=== PATIENT | male | born 1935 | race Caucasian/White ===

== ENCOUNTER 2018-10-09 09:50 | Inpatient (IN) | payer OTHER ==
[~2018-10-09] VITALS: Ht 185.4 cm; Wt 92.0 kg
[2018-10-09] MEDS ORDERED: ondansetron/PF 4mg/2ml inj IV ONE (10:25)
[2018-10-09 10:27] LABS: BASOPHILS % (AUTO) 0.1 % (0-1); EOSINOPHILS % (AUTO) 0 % (0-6); HEMATOCRIT 43.9 % (42.0-52.0); HEMOGLOBIN 15.4 g/dl (14.0-17.9); LYMPHOCYTES # (AUTO) 0.5 X10'3 (1.1-4.8); LYMPHOCYTES % (AUTO) 4.3 % (21-51); MEAN CORPUSCULAR HEMOGLOBIN 32.8 PG (27.0-31.0); MEAN CORPUSCULAR HGB CONC 35.1 g/dL (33.0-36.5); MEAN CORPUSCULAR VOLUME 93.3 FL (78-98); MEAN PLATELET VOLUME 7.3 FL (7.4-10.4); MONOCYTES # (AUTO) 0.6 X10'3 (0-0.9); NEUTROPHILS % (AUTO) 90.6 % (42-75); PLATELET COUNT 214 X10'3 (140-440); RED BLOOD COUNT 4.71 X10'6 (4.70-6.10); WHITE BLOOD COUNT 12.2 X10'3 (4.5-11.0)
[2018-10-09 10:42] LABS: ALANINE AMINOTRANSFERASE 48 U/L (12-78); ALBUMIN 3.8 G/DL (3.4-5.0); ALBUMIN/GLOBULIN RATIO 1.2 (1.1-1.5); ALKALINE PHOSPHATASE 57 IU/L (46-116); ANION GAP 7 (8-16); ASPARTATE AMINO TRANSFERASE 36 U/L (10-37); BILIRUBIN,TOTAL 1.3 MG/DL (0.1-1.0); BLOOD UREA NITROGEN 21 MG/DL (7-18); BUN/CREATININE RATIO 7.4 (5.4-32.0); CHLORIDE 91 MMOL/L (99-107); CREATININE 2.85 MG/DL (0.60-1.10); GLUCOSE 129 MG/DL (70-104); POTASSIUM 4.4 MMOL/L (3.5-5.1); SODIUM 125 MMOL/L (135-145); TOTAL CARBON DIOXIDE 27.2 MMOL/L (24-32); TOTAL PROTEIN 7.1 G/DL (6.4-8.2); eGFR 21 ML/MIN
[2018-10-09 10:46] LABS: PARTIAL THROMBOPLASTIN TIME 28 SECONDS (22-32)
[2018-10-09 10:58] LABS: LIPASE 64 U/L (73-393)
[2018-10-09] MEDS ORDERED: fentaNYL/PF 50MCG/1 ML 2ML syringe IV ONE (11:00)
[2018-10-09 11:05] LABS: CLARITY,URINE CLEAR (Clear); COLOR,URINE YELLOW (Yellow); GLUCOSE, URINE NEGATIVE (Neg); KETONES,URINE NEGATIVE (Neg); LEUKOCYTE ESTERASE ,URINE NEGATIVE (Neg); NITRITES, URINE NEGATIVE (Neg); OCCULT BLOOD,URINE LARGE (Neg); PH,URINE 5.5 (4.8-8.0); PROTEIN,URINE NEGATIVE (Neg); UROBILINOGEN,URINE 0.2 E.U/dL (0.2-1.0)
[2018-10-09 11:06] LABS: UA COLLECTION TYPE FOLEY CATH
[2018-10-09 11:13] LABS: MUCUS STRANDS FEW /LPF (Neg); RBC,URINE 50-100 /HPF (0-2); SQUAMOUS EPITHELIAL CELL,UR FEW /LPF (FEW); WBC,URINE 0-4 /HPF (0-4)
[2018-10-09 11:14] LABS: BACTERIA,URINE FEW /HPF (Neg)
[2018-10-09] MEDS ORDERED: normal saline 1000ML IV soln IVB ONE (11:45)
[2018-10-09] MEDS ORDERED: fentaNYL/PF 50MCG/1 ML 2ML syringe ONE (12:01)
[2018-10-09] MEDS ORDERED: magnesium Cl slow-release 64mg tablet PO PRN (12:25)
[2018-10-09] MEDS ORDERED: mag hydrox/Alum hydrox/simeth 30ml oral suspension PO PRN (12:25)
[2018-10-09] MEDS: K and/or MAG REPLACEMENT MC SCH (12:25)
[2018-10-09] MEDS ORDERED: potassium Cl 20 mEq SR tablet PO PRN (12:25)
[2018-10-09] MEDS ORDERED: HYDROcodone/acetaminophen 10/325mg tab PO PRN (12:25)
[2018-10-09] MEDS ORDERED: morphine 2 MG/ML inj. syringe IV PRN (12:25)
[2018-10-09] MEDS ORDERED: magnesium 2GM in 50ml NS 50 ML IV PRN (12:25)
[2018-10-09] MEDS ORDERED: magnesium 4gm in 100ml NS 100 ML IV PRN (12:25)
[2018-10-09] MEDS ORDERED: potassium CL 10mEq/100ml bag 100 ML IV PRN ×2 (12:25)
[2018-10-09] MEDS ORDERED: HYDROcodone/acetaminophen 5mg/325mg tablet PO PRN (12:25)
[2018-10-09] MEDS ORDERED: metoclopramide 5 mg/ml inj IV PRN (12:25)
[2018-10-09] MEDS ORDERED: diphenhydrAMINE 50 mg/ml inj IV PRN (12:25)
[2018-10-09] MEDS ORDERED: magnesium hydroxide 30ml (MOM) UD suspension PO PRN (12:25)
[2018-10-09] MEDS ORDERED: diphenhydrAMINE 25mg capsule PO PRN (12:25)
[2018-10-09] MEDS ORDERED: acetaminophen 650mg rectal suppository RC PRN (12:25)
[2018-10-09] MEDS ORDERED: acetaminophen 325mg tablet PO PRN ×2 (12:25)
[2018-10-09] MEDS ORDERED: ondansetron/PF 4mg/2ml inj IV PRN (12:25)
[2018-10-09] MEDS ORDERED: NO HOME MEDS (12:26)
--- NOTE | 2018-10-09 12:27 | NUR ---
relieving RN for break, pt is resting quietly on gurney, resp even and unlabored, NGTube connected to suction, 200ml of dark brown fluid initial output, friend at bedside
[2018-10-09] MEDS: dextrose 5%-normal saline 1,000 ML IV SCH ×3 (13:05→22:59)
[2018-10-09 13:30] VITALS: BP 134/73
--- NOTE | 2018-10-09 18:30 | NUR ---
Problems reprioritized. Patient report given, questions answered & plan of care reviewed with Chichi OSORIO.
--- NOTE | 2018-10-09 18:35 | NUR ---
Patient in room [facility]. I have received report from Omar OSORIO and had the opportunity to ask questions and assume patient care.
[2018-10-09] MEDS: heparin, porcine 5000 units/ml vial SQ SCH (19:23)
[2018-10-09] MEDS: morphine 2 MG/ML inj. syringe IV PRN (19:25)
[2018-10-09 20:19] VITALS: BP 137/77
[2018-10-09] MEDS ORDERED: temazepam 15mg capsule PO PRN (21:00)
[2018-10-09] MEDS: diatr meglu/diatrizoate 30ml oral sol.-(3 dose) bottle PO SCH (21:45)
[2018-10-09] MEDS ORDERED: proCHLORperazine 10 MG/2 ml inj IV ONE (22:05)
[2018-10-10] VITALS: BP 136/71
[2018-10-10] MEDS: dextrose 5%-normal saline 1,000 ML IV SCH ×2 (04:25→07:02)
[2018-10-10 05:35] LABS: BASOPHILS % (AUTO) 0.1 % (0-1); EOSINOPHILS % (AUTO) 0.2 % (0-6); HEMATOCRIT 39.5 % (42.0-52.0); HEMOGLOBIN 13.6 g/dl (14.0-17.9); LYMPHOCYTES # (AUTO) 0.6 X10'3 (1.1-4.8); LYMPHOCYTES % (AUTO) 6.4 % (21-51); MEAN CORPUSCULAR HEMOGLOBIN 32.9 PG (27.0-31.0); MEAN CORPUSCULAR HGB CONC 34.5 g/dL (33.0-36.5); MEAN CORPUSCULAR VOLUME 95.4 FL (78-98); MEAN PLATELET VOLUME 7.7 FL (7.4-10.4); MONOCYTES # (AUTO) 0.8 X10'3 (0-0.9); MONOCYTES % (AUTO) 7.9 % (2-12); NEUTROPHILS # (AUTO) 8.5 X10'3 (1.8-7.7); NEUTROPHILS % (AUTO) 85.4 % (42-75); PLATELET COUNT 184 X10'3 (140-440); RED BLOOD COUNT 4.14 X10'6 (4.70-6.10); RED CELL DISTRIBUTION WIDTH 13.1 % (11.5-14.5); WHITE BLOOD COUNT 9.9 X10'3 (4.5-11.0)
[2018-10-10 05:43] LABS: ALANINE AMINOTRANSFERASE 35 U/L (12-78); ALBUMIN 2.9 G/DL (3.4-5.0); ALKALINE PHOSPHATASE 46 IU/L (46-116); ANION GAP 3 (8-16); ASPARTATE AMINO TRANSFERASE 23 U/L (10-37); BILIRUBIN,TOTAL 0.7 MG/DL (0.1-1.0); BLOOD UREA NITROGEN 11 MG/DL (7-18); BUN/CREATININE RATIO 12.1 (5.4-32.0); CALCIUM 8.7 MG/DL (8.5-10.1); CHLORIDE 103 MMOL/L (99-107); CHOL/HDL RATIO 1.6 (0.00-4.99); CHOLESTEROL 124 MG/DL (0-200); CREATININE 0.91 MG/DL (0.60-1.10); GLUCOSE 115 MG/DL (70-104); HDL CHOLESTEROL 76 MG/DL (35-60); LDL CHOLESTEROL 39 MG/DL (50-100); MAGNESIUM 2.2 MG/DL (1.5-2.4); PHOSPHORUS 3.3 MG/DL (2.3-4.5); SODIUM 139 MMOL/L (135-145); TOTAL CARBON DIOXIDE 33.3 MMOL/L (24-32); TOTAL PROTEIN 5.7 G/DL (6.4-8.2); TRIGLYCERIDES 67 MG/DL (20-135); eGFR 80 ML/MIN
[2018-10-10 06:11] LABS: URINE AMPHETAMINE SCREEN NEGATIVE (Neg); URINE BARBITUATE SCREEN NEGATIVE (Neg); URINE BENZODIAZEPINES SCREEN NEGATIVE (Neg); URINE CANNABINOID SCREEN POSITIVE (Neg); URINE COCAINE SCREEN NEGATIVE (Neg); URINE METHADONE SCREEN NEGATIVE (Neg); URINE OPIATE SCREEN POSITIVE (Neg); URINE PHENCYCLIDINE SCREEN NEGATIVE (Neg)
--- NOTE | 2018-10-10 06:53 | NUR ---
Problems reprioritized. Patient report given, questions answered & plan of care reviewed with Omar RN.
[2018-10-10] MEDS: diatr meglu/diatrizoate 30ml oral sol.-(3 dose) bottle PO SCH ×2 (07:01→09:31)
[2018-10-10] MEDS: heparin, porcine 5000 units/ml vial SQ SCH ×2 (07:03→20:52)
[2018-10-10] MEDS: K and/or MAG REPLACEMENT MC SCH (07:04)
[2018-10-10 07:28] VITALS: BP 105/72
[2018-10-10] MEDS ORDERED: iohexol 300mg/ml 100ml inj. ONE (10:27)
[2018-10-10 11:00] VITALS: BP 145/75
[2018-10-10] MEDS: morphine 2 MG/ML inj. syringe IV PRN (11:12)
[2018-10-10] MEDS: levoFLOXACIN-Levaquin 750MG/D5 150 ML IV SCH (13:10)
[2018-10-10] MEDS: metroNIDAZOLE-Flagyl 500mg/NS 100 ML IV SCH (16:17)
--- NOTE | 2018-10-10 16:17 | NUR ---
NG CLAMPED OFF AT THIS TIME PER DR COOK.
[2018-10-10 16:37] LABS: H PYLORI ANTIBODY NEGATIVE (Neg)
[2018-10-10 17:33] LABS: GASTRIC OCCULT BLOOD POSITIVE (Neg)
--- NOTE | 2018-10-10 18:50 | NUR ---
Patient in room [facility]. I have received report from Omar OSORIO and had the opportunity to ask questions and assume patient care.
--- NOTE | 2018-10-10 18:54 | NUR ---
Problems reprioritized. Patient report given, questions answered & plan of care reviewed with Chichi OSORIO.
[2018-10-10 20:00] VITALS: BP 161/79
[2018-10-10] MEDS: tamsulosin 0.4mg capsule PO SCH (20:48)
[2018-10-10] MEDS: ESOMEPRAZOLE 40 MG VIAL IV SCH (20:49)
[2018-10-11] VITALS (9 sets, daily range): BP systolic 129–169; BP diastolic 72–90
[2018-10-11] MEDS: metroNIDAZOLE-Flagyl 500mg/NS 100 ML IV SCH ×3 (00:07→16:09)
[2018-10-11] MEDS: dextrose 5%-normal saline 1,000 ML IV SCH (03:31)
[2018-10-11 05:31] LABS: BASOPHILS % (AUTO) 0.2 % (0-1); EOSINOPHILS # (AUTO) 0.1 X10'3 (0-0.9); EOSINOPHILS % (AUTO) 1.9 % (0-6); HEMATOCRIT 37.5 % (42.0-52.0); HEMOGLOBIN 12.9 g/dl (14.0-17.9); LYMPHOCYTES # (AUTO) 0.8 X10'3 (1.1-4.8); LYMPHOCYTES % (AUTO) 14.7 % (21-51); MEAN CORPUSCULAR HEMOGLOBIN 32.9 PG (27.0-31.0); MEAN CORPUSCULAR HGB CONC 34.5 g/dL (33.0-36.5); MEAN CORPUSCULAR VOLUME 95.4 FL (78-98); MEAN PLATELET VOLUME 7.4 FL (7.4-10.4); MONOCYTES # (AUTO) 0.6 X10'3 (0-0.9); MONOCYTES % (AUTO) 10.5 % (2-12); NEUTROPHILS # (AUTO) 4.2 X10'3 (1.8-7.7); NEUTROPHILS % (AUTO) 72.7 % (42-75); PLATELET COUNT 165 X10'3 (140-440); RED BLOOD COUNT 3.93 X10'6 (4.70-6.10); RED CELL DISTRIBUTION WIDTH 13.2 % (11.5-14.5); WHITE BLOOD COUNT 5.7 X10'3 (4.5-11.0)
[2018-10-11 05:47] LABS: ALANINE AMINOTRANSFERASE 31 U/L (12-78); ALBUMIN 2.8 G/DL (3.4-5.0); ALKALINE PHOSPHATASE 42 IU/L (46-116); ANION GAP 4 (8-16); ASPARTATE AMINO TRANSFERASE 13 U/L (10-37); BILIRUBIN,TOTAL 0.7 MG/DL (0.1-1.0); BLOOD UREA NITROGEN 10 MG/DL (7-18); BUN/CREATININE RATIO 13.5 (5.4-32.0); CALCIUM 8.4 MG/DL (8.5-10.1); CHLORIDE 105 MMOL/L (99-107); CREATININE 0.74 MG/DL (0.60-1.10); GLUCOSE 94 MG/DL (70-104); PHOSPHORUS 2.6 MG/DL (2.3-4.5); POTASSIUM 3.6 MMOL/L (3.5-5.1); SODIUM 140 MMOL/L (135-145); TOTAL CARBON DIOXIDE 31.1 MMOL/L (24-32); TOTAL PROTEIN 5.6 G/DL (6.4-8.2); eGFR > 90 ML/MIN
--- NOTE | 2018-10-11 06:31 | NUR ---
Problems reprioritized. Patient report given, questions answered & plan of care reviewed with Kavita OSORIO.
[2018-10-11] MEDS: K and/or MAG REPLACEMENT MC SCH (08:00)
[2018-10-11] MEDS: heparin, porcine 5000 units/ml vial SQ SCH ×2 (08:00→08:23)
[2018-10-11] MEDS: ESOMEPRAZOLE 40 MG VIAL IV SCH (08:23)
[2018-10-11] MEDS: levoFLOXACIN-Levaquin 750MG/D5 150 ML IV SCH (10:19)
--- NOTE | 2018-10-11 11:52 | NUR ---
Pt stated he was refusing the EGD and wanted to leave AMA. I reviewed the test and procedure as well as conscious sedation. Pt agreed to the EGD if he would be "asleep" and not have a tube in his nose stating, "I'm not going through that again". I spoke w/ Bertha RN in GI lab to confirm EGD scheduling and she expressed concern SBO was resolving d/t gas and bowel sounds. Dr. Das, & JO Walls, were notified and clarified the EGD was indicated d/t pt's Gastroccult was positive. Bertha was notified of clarification and she stated she would come get the patient for the EGD.
--- NOTE | 2018-10-11 11:56 | NUR ---
Pt. refused EGD procedure this AM. aware. Risks of not having procedure explained. Pt. still wanted to leave. AMA papers signed, however charge nurse spoke to pt. and explained that pt. would be sedated during procedure. pt decided he would be ok with the procedure but then is hoping to leave afterwards. Explained to the pt. that discharge would depend on the results of the procedure. GI called, charge spoke to Bertha to reschedule EGD as pt. is allowing at this time. FC removed per verbal order from . Will cont. to monitor on my shift.
[2018-10-11] MEDS ORDERED: MIDAZolam 5mg/5ml vial ONE (12:17)
[2018-10-11] MEDS ORDERED: fentaNYL/PF 50MCG/1 ML 2ML syringe ONE (12:17)
[2018-10-11] MEDS ORDERED: LIDOcaine Viscous 15ml cup ONE (12:17)
[2018-10-11 13:12] LABS: % FREE PSA 19.4 % (.); PSA, FREE 0.31 ng/mL
--- NOTE | 2018-10-11 13:27 | NUR ---
PAGER ID: [phone] MESSAGE: [phone] Ruel Chirinos Return from EGD. Ride home is here. Eager to leave. Rochelle recommends Protonix 40mg BID for LA Grade C acute esophagitis and gastritis. Biopsied-pt. aware to call pathology. Diet? Kavita [phone]
--- NOTE | 2018-10-11 15:05 | NUR ---
Dr. Ely rounded, speaking to pt re: no surgery indicated. stated pt may be discharged when ready per hospitalist.
--- NOTE | 2018-10-11 15:41 | NUR ---
PAGER ID: [phone] MESSAGE: [phone] AMNA CUTLERRADHA ROUNDED ON PT. AND HAS APPROVED A DISCHARGE FOR HIM . LET ME KNOW WHAT YOU THINK. KATHY [phone]
[2018-10-11] MEDS ORDERED: METR500T PO (15:46)
[2018-10-11] MEDS ORDERED: LEVO500T89 PO (15:46)
[2018-10-11] MEDS ORDERED: PANT40TA4 PO (15:46)
[2018-10-11] MEDS ORDERED: tamsulosin capsule PO (15:46)
--- NOTE | 2018-10-11 15:46 | NUR ---
BLADDER SCANNED 275 ML IN BLADDER. PT. ENCOURAGED TO AMBULATE. WALKED 900FT. WILL CONT. TO MONITOR.
--- NOTE | 2018-10-11 15:54 | NUR ---
PAGER ID: [phone] MESSAGE: AMNA JORGENSEN 356A PT. STILL NO VOID SINCE FC REMOVED. 275 IN BLADDER. OK TO SEND HOME WITH FLOMAX OR WAIT UNTIL VOID? KATHY [phone]
--- NOTE | 2018-10-11 15:56 | NUR ---
CALLED BACK IMMEDIATELY. WANTS PT. TO VOID BEFORE HE GOES HOME. STRAIGHT CATH IF BLADDER HAS >600 IN BLADDER.
--- NOTE | 2018-10-11 16:46 | NUR ---
ACCOUNT DEVELOPMENT MANAGER bladder scanned pt. 431 in bladder. will cont. to monitor on my shift. encouraged pt to use restroom and ambulate.
--- NOTE | 2018-10-11 17:38 | NUR ---
DISCHARGE ON HOLD PER MD MEIER R/T [facility]G AMOUNT OF TARRY STOOL. PT. AWARE AND IN AGREEMENT AT THIS TIME WITH POC.
[2018-10-11] MEDS: pantoprazole 40MG/NS 100ML BAG 100 ML IV SCH ×2 (18:10→21:51)
[2018-10-11 18:54] LABS: HEMATOCRIT 39.8 % (42.0-52.0); HEMOGLOBIN 13.6 g/dl (14.0-17.9); MEAN CORPUSCULAR HEMOGLOBIN 32.6 PG (27.0-31.0); MEAN CORPUSCULAR HGB CONC 34.3 g/dL (33.0-36.5); MEAN CORPUSCULAR VOLUME 95.2 FL (78-98); MEAN PLATELET VOLUME 7.3 FL (7.4-10.4); PLATELET COUNT 178 X10'3 (140-440); RED BLOOD COUNT 4.18 X10'6 (4.70-6.10); RED CELL DISTRIBUTION WIDTH 12.9 % (11.5-14.5); WHITE BLOOD COUNT 4.9 X10'3 (4.5-11.0)
--- NOTE | 2018-10-11 19:14 | NUR ---
Report given to Pema OSORIO.
[2018-10-11] MEDS: lactobacillus rhamnosus 10,000 MMU CELLS/CAPSULE PO SCH (20:17)
[2018-10-11] MEDS: tamsulosin 0.4mg capsule PO SCH (20:17)
--- NOTE | 2018-10-11 21:00 | NUR ---
Patient got up to use the BR. Had one episode of black watery diarrhea. Patient stated he was not able to void. Bladder scan showed >999ml. Straight cath under sterile technique. Return 950ml clear farida color urine. Patient tolerated well.
[2018-10-11 23:47] LABS: HEMATOCRIT 38.5 % (42.0-52.0); HEMOGLOBIN 13.4 g/dl (14.0-17.9); MEAN CORPUSCULAR HEMOGLOBIN 32.8 PG (27.0-31.0); MEAN CORPUSCULAR HGB CONC 34.8 g/dL (33.0-36.5); MEAN CORPUSCULAR VOLUME 94.3 FL (78-98); MEAN PLATELET VOLUME 7.2 FL (7.4-10.4); PLATELET COUNT 179 X10'3 (140-440); RED BLOOD COUNT 4.09 X10'6 (4.70-6.10); RED CELL DISTRIBUTION WIDTH 12.8 % (11.5-14.5); WHITE BLOOD COUNT 5.1 X10'3 (4.5-11.0)
[2018-10-12] VITALS: BP 159/81
[2018-10-12] MEDS: metroNIDAZOLE-Flagyl 500mg/NS 100 ML IV SCH ×2 (00:45→09:15)
[2018-10-12] MEDS: pantoprazole 40MG/NS 100ML BAG 100 ML IV SCH ×3 (04:54→11:00)
[2018-10-12] MEDS: dextrose 5%-normal saline 1,000 ML IV SCH (04:57)
--- NOTE | 2018-10-12 05:10 | NUR ---
Patient bladder scan this morning reveal 791ml. Patient stood up attempted to void 15mins. No luck. Patient stated he feels the urge to go but is unable to. Straight cath under sterile technique. Return 1100ml of clear light farida. Patient tolerated well.
[2018-10-12 06:25] LABS: BASOPHILS % (AUTO) 0.4 % (0-1); EOSINOPHILS # (AUTO) 0.2 X10'3 (0-0.9); EOSINOPHILS % (AUTO) 3.5 % (0-6); HEMATOCRIT 39.1 % (42.0-52.0); HEMOGLOBIN 13.5 g/dl (14.0-17.9); LYMPHOCYTES # (AUTO) 0.7 X10'3 (1.1-4.8); LYMPHOCYTES % (AUTO) 15.6 % (21-51); MEAN CORPUSCULAR HEMOGLOBIN 32.7 PG (27.0-31.0); MEAN CORPUSCULAR HGB CONC 34.5 g/dL (33.0-36.5); MEAN CORPUSCULAR VOLUME 94.8 FL (78-98); MEAN PLATELET VOLUME 7.4 FL (7.4-10.4); MONOCYTES # (AUTO) 0.4 X10'3 (0-0.9); MONOCYTES % (AUTO) 9.5 % (2-12); NEUTROPHILS # (AUTO) 3.3 X10'3 (1.8-7.7); PLATELET COUNT 182 X10'3 (140-440); RED BLOOD COUNT 4.12 X10'6 (4.70-6.10); RED CELL DISTRIBUTION WIDTH 13.1 % (11.5-14.5); WHITE BLOOD COUNT 4.6 X10'3 (4.5-11.0)
[2018-10-12 06:47] LABS: ALANINE AMINOTRANSFERASE 31 U/L (12-78); ALBUMIN 2.9 G/DL (3.4-5.0); ALKALINE PHOSPHATASE 45 IU/L (46-116); ANION GAP 6 (8-16); ASPARTATE AMINO TRANSFERASE 20 U/L (10-37); BILIRUBIN,TOTAL 0.7 MG/DL (0.1-1.0); BLOOD UREA NITROGEN 7 MG/DL (7-18); BUN/CREATININE RATIO 9.6 (5.4-32.0); CALCIUM 8.4 MG/DL (8.5-10.1); CHLORIDE 106 MMOL/L (99-107); CREATININE 0.73 MG/DL (0.60-1.10); GLUCOSE 106 MG/DL (70-104); PHOSPHORUS 2.5 MG/DL (2.3-4.5); POTASSIUM 3.4 MMOL/L (3.5-5.1); SODIUM 140 MMOL/L (135-145); TOTAL CARBON DIOXIDE 27.7 MMOL/L (24-32); TOTAL PROTEIN 5.9 G/DL (6.4-8.2); eGFR > 90 ML/MIN
[2018-10-12 07:20] VITALS: BP 168/91
[2018-10-12] MEDS: levoFLOXACIN-Levaquin 750MG/D5 150 ML IV SCH (07:38)
[2018-10-12] MEDS: lactobacillus rhamnosus 10,000 MMU CELLS/CAPSULE PO SCH (07:38)
[2018-10-12] MEDS: potassium Cl 20 mEq SR tablet PO PRN ×2 (07:41→12:22)
[2018-10-12] MEDS: K and/or MAG REPLACEMENT MC SCH (07:41)
--- NOTE | 2018-10-12 10:22 | NUR ---
Patient ambulated in an attempt to urinate. He could not urinate on his own. Bladder scan showed 695mL. MD aware and wanted kerr catheter placed. Patient will discharge with kerr catheter and follow up with urology.
[2018-10-12 11:00] VITALS: BP 161/88
--- NOTE | 2018-10-12 12:13 | NUR ---
Patient given new patient packet faxed over from Dr. Wheeler office. He is filling out the paperwork to fax back.
--- NOTE | 2018-10-12 12:30 | NUR ---
Spoke with MD regarding K+ level of 3.4. Patient received a total of 40mEq before discharge and he stated it was sufficient.
[2018-10-12 12:52] LABS: HEMATOCRIT 39.3 % (42.0-52.0); HEMOGLOBIN 13.7 g/dl (14.0-17.9); MEAN CORPUSCULAR HEMOGLOBIN 33.1 PG (27.0-31.0); MEAN CORPUSCULAR HGB CONC 34.8 g/dL (33.0-36.5); MEAN CORPUSCULAR VOLUME 94.9 FL (78-98); MEAN PLATELET VOLUME 7.3 FL (7.4-10.4); PLATELET COUNT 192 X10'3 (140-440); RED BLOOD COUNT 4.15 X10'6 (4.70-6.10); RED CELL DISTRIBUTION WIDTH 12.7 % (11.5-14.5); WHITE BLOOD COUNT 4.3 X10'3 (4.5-11.0)
--- NOTE | 2018-10-12 13:34 | NUR ---
Patient discharged home with friend. Stable and appropriate. All belongings taken from room. IV removed. New medications called into [facility]. Cardona catheter discharged with patient, care and instructions given. Patient and friend verbalized understanding and return demonstration. Discharge instructions given and reviewed with patient and friend. All questions answered. Paperwork from Dr. Wheeler office was filled out and faxed back to office as requested. Office staff said they will be in contact with patient on Monday to make a follow up appt as Dr. Dunaway has requested.
== END 2018-10-12 13:35 | disposition home or self-care (01) | DRG 698 ==
LOC: ER 09:51 → SUR 3N 13:52
PROVIDERS: ADMIT Family Medicine; ATTEND Family Medicine
PROC: 0D9670Z Drainage of Stomach with Drainage Device, Via Natural or Artificial Opening (ICD-10-PCS; 2018-10-09)
PROC: BW211ZZ Computerized Tomography (CT Scan) of Abdomen and Pelvis using Low Osmolar Contrast (ICD-10-PCS; principal; 2018-10-10)
PROC: 0DB58ZX Excision of Esophagus, Via Natural or Artificial Opening Endoscopic, Diagnostic (ICD-10-PCS; 2018-10-11)
PROC: 0DB68ZX Excision of Stomach, Via Natural or Artificial Opening Endoscopic, Diagnostic (ICD-10-PCS; 2018-10-11)
DX: N13.9 Obstructive and reflux uropathy, unspecified (principal); K29.01 Acute gastritis with bleeding; K56.609 Unspecified intestinal obstruction, unspecified as to partial versus complete obstruction; K22.10 Ulcer of esophagus without bleeding; N17.9 Acute kidney failure, unspecified; K92.1 Melena; K56.7 Ileus, unspecified; F12.10 Cannabis abuse, uncomplicated; F10.10 Alcohol abuse, uncomplicated; M19.90 Unspecified osteoarthritis, unspecified site; N32.89 Other specified disorders of bladder; K52.9 Noninfective gastroenteritis and colitis, unspecified; Z82.5 Family history of asthma and other chronic lower respiratory diseases; Z71.51 Drug abuse counseling and surveillance of drug abuser; Z71.41 Alcohol abuse counseling and surveillance of alcoholic
CPT/HCPCS: 36415; 43239; 71045; 74176; 74177; 80053; 80061; 80305; 81001; 82271; 83036; 83690; 83735; 84100; 84145; 84153; 84154; 84484; 85025; 85027; 85610; 85730; 86677; 86885; 86900; 86901; 87081; 87088; 93005; 93306; 96374; 96375; 97110; 97161; 97530; 99152; 99285; A4620; C9113; G0378; J0780; J1644; J1956; J2250; J2270; J2405; J3010; J3490; J7040; J7042; Q9963; Q9967

== ENCOUNTER 2018-10-26 05:36 | Emergency (ER) | payer OTHER ==
[~2018-10-26] VITALS: Ht 182.9 cm; Wt 86.4 kg
[~2018-10-26 05:36] MED LIST: LEVO500T89 PO; PANT40TA4 PO; tamsulosin capsule PO
[2018-10-26 05:40] VITALS: BP 170/97
[2018-10-26] MEDS ORDERED: ciprofloxacin 250mg tablet PO ONE (05:45)
[2018-10-26] MEDS ORDERED: CIPR250T4 PO (05:45)
[2018-10-26] MEDS ORDERED: LIDOcaine 2% 10ml TOPICAL JELLY (Urojet) MM ONE (05:50)
--- NOTE | 2018-10-26 05:50 | NUR ---
pER edmd NUSRAT, FC TO BE PLACED WITH LEG BAG
[2018-10-26 06:20] LABS: CLARITY,URINE CLEAR (Clear); COLOR,URINE YELLOW (Yellow); GLUCOSE, URINE NEGATIVE (Neg); KETONES,URINE NEGATIVE (Neg); LEUKOCYTE ESTERASE ,URINE NEGATIVE (Neg); NITRITES, URINE NEGATIVE (Neg); OCCULT BLOOD,URINE NEGATIVE (Neg); PH,URINE 5.5 (4.8-8.0); PROTEIN,URINE NEGATIVE (Neg); UA COLLECTION TYPE FOLEY CATH; UROBILINOGEN,URINE 0.2 E.U/dL (0.2-1.0)
== END 2018-10-26 06:29 | disposition home or self-care (01) ==
LOC: ER 05:36
DX: N13.9 Obstructive and reflux uropathy, unspecified (principal); Z79.2 Long term (current) use of antibiotics; Z79.899 Other long term (current) drug therapy
CPT/HCPCS: 51702; 81003; 99284